=== PATIENT | female | born 1990 | race Two or more races ===

== ENCOUNTER 2024-10-22 08:42 | Emergency (ER) | payer OTHER ==
[~2024-10-22] VITALS: Ht 175.3 cm; Wt 70.3 kg
[2024-10-22] MEDS ORDERED: ROSUVASTATIN CA40 MG PO (08:59)
[2024-10-22] MEDS ORDERED: YAZ 28 TABLET1 EACH PO (09:00)
== END 2024-10-22 10:09 | disposition home or self-care (01) ==
LOC: ER 08:45
DX: H61.21 Impacted cerumen, right ear (principal); E78.49 Other hyperlipidemia